=== PATIENT | female | born 1965 | race Two or more races ===

== ENCOUNTER 2017-03-06 23:53 | Emergency (ER) | payer OTHER ==
--- NOTE | ~2017-03-06 | CT71 ---
[facility] A Service of [facility] RADIOLOGY TEXT RESULTS PATIENT: JUAN ERIC LOCATION: [facility] : 67 UNIT #: [id number] AGE: [address]: Jordan Winters MD SEX: F ORDER DR: [id number] [address] [id number] E MR#: [id number] Acc #: [id number] NAME: JUAN ERIC : 1965 SEX: F STUDY DATE/TIME: UNIT: [facility] ROOM: STUDY DESCRIPTION: CT Head Wo Contrast Attending Physician: Jordan Winters Ordering Physician: Jimy Winters M.D. Primary Care Physician: Primary Care Physician No MEDICAL IMAGING REPORT This report is preliminary unless electronic signature is present EXAM Head CT 03/07 at 0114 hours INDICATIONS Headache and nausea that started yesterday COMPARISON None TECHNIQUE Axial noncontrast images were obtained from the skull base to the vertex. This CT exam was performed with one or more of the following radiation dose reduction techniques: automatic exposure control, adjustment of mA and/or kV according to patient size, and iterative reconstruction. FINDINGS Ventricular size and configuration are normal. There is no evidence of acute infarct or hemorrhage. There are no extraaxial fluid collections. No mass lesion or mass effect is seen. There are no skull fractures. IMPRESSION Normal noncontrast head CT. Dictated by... Enzo Murphy Jr., M.D. THIS IS AN ELECTRONICALLY VERIFIED REPORT Enzo Murphy Jr., M.D. at 03/07/2017 9:23 PM RLK/to TD: 03/07/2017 14:29 JOB #: [id number] [facility] A Service [facility] RADIOLOGY TEXT RESULTS PATIENT: JUAN ERIC LOCATION: [facility] : 67 UNIT #: [id number] AGE: [address]: Jordan Winters MD SEX: F ORDER DR: MEDICAL IMAGING REPORT Page 1 of 1 COPY
== END 2017-03-07 01:51 | disposition home or self-care (01) ==
LOC: CED 23:53
DX: R51 Headache (principal)
CPT/HCPCS: 70450; 99284